=== PATIENT | female | born 1995 | race Caucasian/White ===

== ENCOUNTER 2017-02-17 08:45 | Outpatient (CLI) | payer BC ==
--- NOTE | 2017-02-17 12:54 | RAD ---
SMALL BOWEL: HISTORY: A 21-year-old female with non-infected gastroenteritis. Change in bowel habits. FLUOROSCOPY TIME: 0.9 minutes with 7 portable fluoroscopic spot films and dose of 47.91 mGy. FINDINGS: The patient was given barium orally. 15, 30, and 45 minute overhead films were performed which demon strate rapid transit of contrast through a normal-appearing small bowel entering the colon by the 30- minute time interval. There was normal-appearing small bowel. The terminal ileum was normal. No mucosal fold thickening. No mass. IMPRESSION: Normal small bowel series. POS: [facility]
[2017-02-17 14:19] LABS: Ref Lab Test Ordered IBD DG #1800 ADD CHR; Reference Lab Name PROMETHEUS
== END 2017-02-17 08:46 | disposition home or self-care (01) ==
LOC: RAD 08:45
PROVIDERS: ATTEND Internal Medicine Gastroenterology
DX: K52.9 Noninfective gastroenteritis and colitis, unspecified (principal); R19.4 Change in bowel habit
CPT/HCPCS: 36415; 74250; 85652